=== PATIENT | female | born 1985 | race Caucasian/White ===

== ENCOUNTER 2017-01-02 09:58 | Outpatient (CLI) | payer OTHER ==
--- NOTE | 2017-01-02 11:08 | RAD ---
FOUR VIEW LEFT KNEE: Clinical history: Fall. Pain. FINDINGS: No fracture or dislocation. No joint capsular distention. IMPRESSION: No acute osseous abnormality of the left knee. POS: [facility]
== END 2017-01-02 09:59 | disposition home or self-care (01) ==
LOC: SCSRAD 09:58
PROVIDERS: ATTEND Family Medicine
DX: S89.92XA Unspecified injury of left lower leg, initial encounter (principal); M25.562 Pain in left knee

== ENCOUNTER 2018-04-26 18:26 | Emergency (ER) | payer OTHER ==
--- NOTE | 2018-04-26 19:17 | RAD ---
CHEST TWO VIEWS: 04/26/18 HISTORY: Cough. FINDINGS: No comparison. The cardiac silhouette and pulmonary vasculature are unremarkable. Mediastinum is midline. No conflue nt air space consolidation, pneumothorax or pleural fluid are apparent. IMPRESSION: No active cardiopulmonary abnormalities are demonstrated. POS: [facility]
== END 2018-04-26 19:13 | disposition home or self-care (01) ==
LOC: SCSER 18:26
DX: J06.9 Acute upper respiratory infection, unspecified (principal); F32.9 Major depressive disorder, single episode, unspecified; Z79.899 Other long term (current) drug therapy
CPT/HCPCS: 71046